=== PATIENT | female | born 1935 | race Caucasian/White ===

== ENCOUNTER 2018-01-31 10:00 | Inpatient (IN) ==
[2018-01-31 12:53] LABS: Basophils # (Auto) 0 K/mcL (0.0-0.3); Basophils % (Auto) 0.3 % (0.0-2.0); Eosinophils # (Auto) 0.2 K/mcL (0.0-0.7); Eosinophils % (Auto) 3.8 % (0.0-7.0); Mean Corpuscular HGB Conc 33.9 g/dL (31.0-36.0); Mean Corpuscular Hemoglobin 30.9 pg (26.0-34.0); Monocytes # (Auto) 0.4 K/mcL (0.1-0.9); Monocytes % (Auto) 5.9 % (1.0-12.0); Platelet Count 177 K/mcL (140-440); RBC 4.71 M/mcL (4.00-5.20); Red Cell Distribution Width 12.6 % (11.5-14.5)
[2018-01-31 12:59] LABS: Appearance,Urine CLEAR; Bacteria,Urine 0 /hpf (0); Bilirubin,Urine NEG (NEG); Color,Urine YELLOW; Glucose,Urine (UA) NEGATIVE (NEG); Leukocyte Esterase,Urine 250 /uL (NEG); Mucus,Urine FEW /hpf (0); Protein,Urine NEG (NEG); Urine Blood NEG mg/dL (<0.03); Urine Hyaline Cast 7 /lpf (0-2); Urine RBC 1 /hpf (0-1); Urine Squamous Epithelial Cell < 1 /hpf (0-4); Urine Transitional Epi Cells < 1 /hpf (0-2); Urine WBC 5 /hpf (0-4); Urobilinogen,Urine NEG (NEG)
[2018-01-31 13:18] LABS: Blood Urea Nitrogen 34 mg/dl (8-23)
[2018-02-04] MEDS ORDERED: ACETAMINOPHEN 500 MG TABLET PO SCH (06:00)
[2018-02-04] MEDS ORDERED: CELECOXIB 200 MG CAPSULE PO SCH (06:00)
[2018-02-04] MEDS ORDERED: ceFAZolin 1 GM VIAL IV SCH (06:00)
[2018-02-04] MEDS ORDERED: oxyCODONE 10 MG TAB.ER.12H PO SCH (06:00)
[2018-02-04] MEDS ORDERED: PREGABALIN 75 MG CAPSULE PO SCH (06:00)
[2018-02-04 06:52] LABS: Appearance,Urine CLEAR; Bilirubin,Urine NEG (NEG); Color,Urine YELLOW; Glucose,Urine (UA) NEGATIVE (NEG); Leukocyte Esterase,Urine NEG /uL (NEG); Protein,Urine NEG (NEG); Specific Gravity,Urine 1.018 (1.000-1.035); Urine Blood NEG mg/dL (<0.03); Urobilinogen,Urine NEG (NEG)
[2018-02-04] MEDS ORDERED: KETOROLAC 30 MG, ROPIVACAINE HCL/PF 49.5 ML, EPINEPHrine 0.5 MG, 0.9 % SODIUM CHLORIDE ... IJ ONE (08:00)
[2018-02-04] MEDS ORDERED: GENTAMICIN SULFATE 800 MG/20 ML VIAL IR ONE (08:33)
[2018-02-04] MEDS ORDERED: MIDAZOLAM 5 MG/5 ML VIAL IV ONE (08:55)
[2018-02-04] MEDS ORDERED: ePHEDrine 50 MG/ML AMPUL IV ONE (08:55)
[2018-02-04] MEDS ORDERED: ONDANSETRON 4 MG/2 ML VIAL IV ONE (08:55)
[2018-02-04] MEDS ORDERED: PROPOFOL 200 MG/20 ML VIAL IV ONE (08:55)
[2018-02-04] MEDS ORDERED: TRANEXAMIC ACID 1,000 MG/10 ML VIAL IV ONE ×2 (08:55→10:25)
[2018-02-04] MEDS ORDERED: GLYCOPYRROLATE 0.2 MG/ML VIAL IV ONE (08:55)
[2018-02-04] MEDS ORDERED: DEXAMETHASONE 10 MG/ML VIAL IV ONE (08:55)
[2018-02-04] MEDS ORDERED: ROPIVACAINE HCL/PF 20 ML VIAL IJ ONE (08:55)
[2018-02-04] MEDS ORDERED: LIDOCAINE HCL/PF 100 MG/5 ML SYRINGE IV ONE (08:55)
[2018-02-04] MEDS ORDERED: ONDANSETRON 4 MG/2 ML VIAL IV PRN ×2 (09:55→10:25)
[2018-02-04] MEDS ORDERED: fentaNYL 100 MCG/2 ML VIAL IV PRN (09:55)
[2018-02-04] MEDS ORDERED: diphenhydrAMINE 50 MG/ML VIAL IV PRN (09:55)
[2018-02-04] MEDS ORDERED: LACTATED RINGERS 250 ML IV PRN (09:55)
[2018-02-04] MEDS ORDERED: PROMETHAZINE 25 MG/ML VIAL IV PRN (09:55)
[2018-02-04] MEDS ORDERED: IPRATROPIUM/ALBUTEROL 3 ML AMPUL.NEB NEB PRN (09:55)
[2018-02-04] MEDS ORDERED: NALOXONE HCL 0.4 MG/ML VIAL IV PRN (09:55)
[2018-02-04] MEDS ORDERED: BENZOCAINE/MENTHOL 1 LOZENGE PO PRN (09:55)
[2018-02-04] MEDS ORDERED: FLUMAZENIL 0.1 MG/ML ML IV PRN (09:55)
[2018-02-04] MEDS ORDERED: MEPERIDINE 25 MG/ML SYRINGE IV PRN (09:55)
[2018-02-04] MEDS ORDERED: LACTATED RINGERS 1,000 ML IV SCH (10:00)
[2018-02-04] MEDS ORDERED: MAGNESIUM HYDROXIDE 30 ML ORAL.SUSP PO PRN (10:25)
[2018-02-04] MEDS ORDERED: BISACODYL 10 MG SUPP.RECT PR PRN (10:25)
[2018-02-04] MEDS ORDERED: ACETAMINOPHEN 325 MG TABLET PO PRN (10:25)
[2018-02-04] MEDS ORDERED: POLYETHYLENE GLYCOL 3350 17 GM PACKET PO PRN (10:25)
[2018-02-04] MEDS ORDERED: HYDROmorphone 2 MG/ML VIAL IV PRN (10:25)
[2018-02-04] MEDS ORDERED: FLEETS ADULT ENEMA PR PRN (10:25)
[2018-02-04] MEDS ORDERED: TEMAZEPAM 15 MG CAPSULE PO PRN (10:25)
--- NOTE | 2018-02-04 10:25 | Brief Operative Note ---
Date of procedure: 02/04/18 Pre-op diagnosis: left knee djd severe Post-op diagnosis: same Procedure: left tka Grafts/Implants: Yes Anesthesia: GETA Complications: none Complications Description: 02/04/18 10:24 none Surgeon: Elmer Rodriguez Support Staff: Norman Alicea Estimated blood loss (cc): 20 Tourniquet Time (Minutes): 50 Specimens Removed/Pathology: none sent Condition: stable Disposition: PACU
[2018-02-04] MEDS ORDERED: traMADol 50 MG TABLET PO PRN (10:29)
--- NOTE | 2018-02-04 10:59 | XRay Report ---
CLINICAL INFORMATION: Postop total knee prostheses COMPARISON: None. FINDINGS: Total knee prostheses is anatomically aligned. No osseous abnormality. Periarticular gas and soft tissue noted IMPRESSION: Negative Interpreted and Authenticated by: Aditya Ji 02/04/18
[2018-02-04] MEDS ORDERED: KETOROLAC 15 MG/ML VIAL IV SCH (12:00)
--- NOTE | 2018-02-04 12:18 | Operative Note ---
DATE OF OPERATION: 02/04/2018 PREOPERATIVE DIAGNOSIS: Left knee degenerative arthritis, severe. POSTOPERATIVE DIAGNOSIS: Left knee degenerative arthritis, severe. PROCEDURE: Left total knee arthroplasty using the Blucarat robot. SURGEON: Elmer Rodriguez M.D. AIR CREW SUPERVISOR: Norman Alicea PA-C. ANESTHESIA: General LMA anesthesia. COMPLICATIONS: None. TOTAL TOURNIQUET TIME: 50 minutes. DESCRIPTION OF PROCEDURE: The patient was brought to the operating room and put to sleep with general LMA anesthesia. Once asleep, the patient had the left leg sterilely prepped and draped in the usual sterile fashion. Timeout performed to confirm the operative site. Once done, preop antibiotics given and tranexamic acid had been given. We then exsanguinated the leg, inflated the tourniquet to 250 pounds of pressure. We made a midline incision, a midvastus approach, and then registered two pins above and below the knee and registered the center of hip rotation. Medial and lateral malleoli were registered and thirty points on the femur and tibia. Intra-articular pins were registered, and then we registered the robot. Once we balanced the knee and positioned the implants on the robot, we then brought the robot in and made our tibial cut first. We made our posterior and anterior cuts of the femur and anterior chamfer cut. We then changed the blade, reregistered the robot, and then made our distal femoral cut and posterior chamfer cuts. Osteophytes were removed posteriorly. The remnants of the meniscus were removed. We preserved the posterior cruciate ligament. We then set the rotation of the tibial base plate using the robot as well in the preoperative plan. All spurs had been removed. We placed the tibial baseplate which was tapped into place. Femoral component was trialed and then an 11 mm poly. This gave us 0 degrees extension, 2 degrees of varus which was the preoperative plan, perfectly balanced throughout the range of motion. We took the kneecap which measured 23 mm and cut this to 14 mm. We placed a 33 mm patellar button. All these components were then cemented into place. Excess cement removed. We kept the knee at 45 degrees until all cement was hardened. We then closed the midvastus approach with #1 Stratafix x2 sutures. We closed the skin with 2-0 Vicryl and adhesive closure. The patient tolerated this well. All pins were removed. We took the knee through range of motion, very well balanced. [email or web address] Job ID: [id number] Doc ID: [id number] Elmer Rodriguez MD
[2018-02-04] MEDS: KETOROLAC 30 MG/ML VIAL IV SCH ×2 (14:27→18:35)
[2018-02-04] MEDS: 0.45 % SODIUM CHLORIDE 1,000 ML IV SCH ×2 (14:27→23:59)
[2018-02-04] MEDS: 0.9 % SODIUM CHLORIDE 10 ML SYRINGE IV SCH ×2 (14:37→21:00)
[2018-02-04] MEDS: DORZOLAMIDE 2% OPHTH DROPS 10ML BOTTLE OS SCH ×2 (16:26→20:59)
[2018-02-04] MEDS: TIMOLOL 0.5% OPHTH DROPS BOTTLE 5ML OS SCH ×2 (16:27→20:59)
[2018-02-04] MEDS: ceFAZolin 1 GM VIAL IV SCH (16:48)
[2018-02-04] MEDS: HYDROcodone/APAP 10/325MG TABLET PO PRN (18:33)
[2018-02-04] MEDS: DOCUSATE SODIUM 100 MG CAPSULE PO SCH (20:57)
[2018-02-04] MEDS: SENNOSIDES 1 TABLET PO SCH (20:57)
[2018-02-04] MEDS: ASPIRIN 325 MG ENTERIC COATED TABLET PO SCH (20:57)
[2018-02-04] MEDS: TRAVOPROST OPHTH DROPS BOTTLE 2.5ML OS SCH (20:58)
[2018-02-04] MEDS: EZETIMIBE 10 MG TABLET PO SCH (20:58)
[2018-02-05] MEDS: KETOROLAC 30 MG/ML VIAL IV SCH ×5 (00:07→23:30)
[2018-02-05] MEDS: ceFAZolin 1 GM VIAL IV SCH (00:07)
[2018-02-05] MEDS: BENZOCAINE/MENTHOL 1 LOZENGE PO PRN ×2 (00:17→04:17)
[2018-02-05] MEDS: 0.9 % SODIUM CHLORIDE 10 ML SYRINGE IV SCH ×4 (05:17→23:30)
--- NOTE | 2018-02-05 07:22 | Orthopedic Progress Note ---
Subjective Patient information: Note initiated : 02/05/18 at 7:21 am Service Date, if different from initiated Date: [] Patient: Lynda Osborne 82 y/o F admitted on 02/04/18 for Left Total Knee Arthroplasty Patel. Chief Complaint: [Pt is stable this morning on post operative day 1 without any significant concerns or complaints. Patients vital signs have remained stable. Patients dressing is dry and is grossly instact from a neurovascular and motor standpoint. Patients 10 point ROS is otherwise negative. ] Objective Vital signs: Vital Signs Temp Pulse Resp BP Pulse Ox 02/05/18 07:15 96.8 F L 70 12 159/83 96 02/05/18 04:00 97.4 F 67 12 127/74 96 02/05/18 00:00 97.6 F 64 12 146/80 94 02/04/18 20:00 96.9 F L 56 L 12 122/75 96 02/04/18 17:36 96 02/04/18 15:51 97.0 F 18 144/87 97 02/04/18 14:25 94 02/04/18 13:29 121/77 95 02/04/18 12:59 147/85 91 02/04/18 12:29 156/88 95 02/04/18 12:14 148/85 98 02/04/18 12:12 98 02/04/18 11:59 139/87 97 02/04/18 11:44 143/84 97 02/04/18 11:29 139/89 96 02/04/18 11:19 98.2 F 70 14 151/81 98 02/04/18 11:05 70 12 138/71 98 02/04/18 10:50 98.3 F 63 16 127/66 98 02/04/18 08:18 97.5 F 64 18 147/77 96 Intake and Output 02/04/18 02/05/18 02/05/18 21:59 05:59 13:59 Intake Total 360 / 360 1753 / 1753 Output Total 451 / 451 300 / 300 Balance -91 / -91 1453 / 1453 Intake: IV 953 / 953 Sodium Chloride 0.45% 1,000 ml 953 / 953 @ 100 mls/hr IV .Q10H [facility] [place] Rx#: [id number] Oral 360 / 360 800 / 800 Output: Void Amount 450 / 450 300 / 300 # of times incontinent of urine Other: Meal Dinner Percent of Meal Consumed 100% Feeding Ability Independent # Voids 1 Weight 155 lb Intake & Output: Intake & Output 02/04/18 02/05/18 02/05/18 21:59 05:59 13:59 Intake Total 360 / 360 1753 / 1753 Output Total 451 / 451 300 / 300 Balance -91 / -91 1453 / 1453 Weight 155 lb Intake: IV 953 / 953 Sodium Chloride 0.45% 1,000 ml 953 / 953 @ 100 mls/hr IV .Q10H [facility] Rx#: [id number] Oral 360 / 360 800 / 800 Output: Void Amount 450 / 450 300 / 300 # of times incontinent of urine Other: Meal Dinner Percent of Meal Consumed 100% Feeding Ability Independent # Voids 1 Incision: Yes healing Incision clean and dry: Yes Dressing: Yes clean Weight bearing status: full Neurological exam IM: Yes motor sensory intact, Yes neurovascular intact Extremities exam IM: Yes Foot pink and warm, Yes neurovascular intact - Labs CBC & BMP: 02/05/18 04:40 01/31/18 10:56 Labs: Orthopedic Labs 01/31/18 10:56 PT 12.8 INR 1.0 APTT 35 02/05/18 01/31/18 04:40 10:56 Hgb 14.6 Hct 34.4 L 42.9
[2018-02-05] MEDS: LEVOTHYROXINE 75 MCG TABLET PO SCH (07:27)
--- NOTE | 2018-02-05 07:30 | Discharge Summary ---
Ortho Discharge - TKA - Patient Instructions Diet: Regular Diet Activity: activity as tolerated, weight bearing as tolerated Total Knee Protocol: For Total Knee: Start ROM RAUL with stationary bike or rocking chair. Work on gaining full extension of knee. Posterior dislocation precautions provided. Hip abductor strengthening and gait training instructions provided. Apply Cryocuff as instructed. Dressing Care: May shower in 2 days, Aquacel Ag - leave on for 5 days Additional Instructions: CPM for home use - Follow Up Plan Follow Up Appointments: Elmer Rodriguez MD [Physician] - 02/19/18 1:40 pm Disposition: Home, Self-Care Prognosis: Good Rehab Potential: Good I certify that the patient requires SNF services: No Overall status at discharge: patient is progressing back to baseline - Orders For Discharge Prescriptions: Aspirin [Ecotrin] 325 mg PO BID #60 tab.ec Docusate Sodium [Colace] 100 mg PO BID #60 cap HYDROcodone/APAP 10/325MG [[place] 10-325Mg] 1 - 2 tab PO Q4HP PRN #75 tab PRN Reason: Pain Level 3-6
[2018-02-05] MEDS: 0.45 % SODIUM CHLORIDE 1,000 ML IV SCH ×2 (07:47→17:15)
[2018-02-05] MEDS: LISINOPRIL 20 MG TABLET PO SCH (08:50)
[2018-02-05] MEDS: CHLORTHALIDONE 25 MG TABLET PO SCH (08:51)
[2018-02-05] MEDS: ASPIRIN 325 MG ENTERIC COATED TABLET PO SCH ×2 (08:51→20:31)
[2018-02-05] MEDS: DORZOLAMIDE 2% OPHTH DROPS 10ML BOTTLE OS SCH ×3 (08:51→20:32)
[2018-02-05] MEDS: TIMOLOL 0.5% OPHTH DROPS BOTTLE 5ML OS SCH ×3 (08:51→20:32)
[2018-02-05] MEDS: DOCUSATE SODIUM 100 MG CAPSULE PO SCH ×2 (08:51→20:31)
[2018-02-05] MEDS: HYDROcodone/APAP 10/325MG TABLET PO PRN ×3 (08:58→20:31)
[2018-02-05] MEDS: EZETIMIBE 10 MG TABLET PO SCH (20:31)
[2018-02-05] MEDS: TRAVOPROST OPHTH DROPS BOTTLE 2.5ML OS SCH (20:31)
[2018-02-05] MEDS: SENNOSIDES 1 TABLET PO SCH (20:31)
[2018-02-06] MEDS: LEVOTHYROXINE 75 MCG TABLET PO SCH (07:56)
[2018-02-06] MEDS: KETOROLAC 30 MG/ML VIAL IV SCH (07:57)
[2018-02-06] MEDS: HYDROcodone/APAP 10/325MG TABLET PO PRN (07:59)
[2018-02-06] MEDS: 0.9 % SODIUM CHLORIDE 10 ML SYRINGE IV SCH (08:00)
[2018-02-06] MEDS: CHLORTHALIDONE 25 MG TABLET PO SCH (09:28)
[2018-02-06] MEDS: DOCUSATE SODIUM 100 MG CAPSULE PO SCH (09:28)
[2018-02-06] MEDS: ASPIRIN 325 MG ENTERIC COATED TABLET PO SCH (09:28)
[2018-02-06] MEDS: LISINOPRIL 20 MG TABLET PO SCH (09:29)
[2018-02-06] MEDS: DORZOLAMIDE 2% OPHTH DROPS 10ML BOTTLE OS SCH (09:31)
[2018-02-06] MEDS: TIMOLOL 0.5% OPHTH DROPS BOTTLE 5ML OS SCH (09:33)
== END 2018-02-06 13:00 | disposition home or self-care (01) | DRG 470 ==
LOC: MEDSUR 02-04 05:49
PROVIDERS: ADMIT Orthopaedic Surgery; ATTEND Orthopaedic Surgery